=== PATIENT | male | born 1965 | race Caucasian/White ===

== ENCOUNTER 2019-12-05 04:32 | Inpatient (IN) | payer BC ==
[~2019-12-05] VITALS: Ht 188 cm; Wt 103.9 kg
[2019-12-05 04:35] VITALS: BP 160/81
[2019-12-05 04:55] LABS: ABSOLUTE NEUTROPHILS 6.8 thou/uL (1.4-8.2); BASOPHILS 1.6 % (0.0-2.0); EOSINOPHILS 1.3 % (0.0-3.0); HEMATOCRIT 41.3 % (42.0-52.0); LYMPHOCYTES 26.6 % (24.0-44.0); MCH 32.2 pg (26.0-34.0); MCV 94.9 fL (80.0-100.0); PLATELET COUNT 224 thou/uL (150-400); POLYS 64.5 % (36.0-66.0); RBC 4.35 mil/uL (4.50-6.00); RDW 13.4 % (10.5-14.5); WBC 10.6 thou/uL (4.0-11.0)
[2019-12-05 05:01] LABS: CALCIUM 8.5 mg/dL (8.5-10.1); POTASSIUM 4.3 mmol/L (3.5-5.1)
--- NOTE | 2019-12-05 05:09 | NUR ---
CATH TEAM ARRIVED TO BEDSIDE IN ER
[2019-12-05 05:10] VITALS: BP 159/90
[2019-12-05 05:11] LABS: ALBUMIN 3.8 g/dL (3.4-5.0); MAGNESIUM 2.1 mg/dL (1.8-2.4); TOTAL BILIRUBIN 0.3 mg/dL (0.2-1.0); TOTAL PROTEIN 7.8 g/dL (6.4-8.2)
[2019-12-05 05:13] LABS: TROPONIN-I 0.78 ng/mL (<0.06)
--- NOTE | 2019-12-05 05:31 | NUR ---
PATIENT DOWN TO CUSTOM GRINDER AT 0510. REPORT GIVEN AT BEDSIDE TO CUSTOM GRINDER RN AND TECH.
[2019-12-05 07:00] VITALS: BP 137/93
[2019-12-05 16:05] VITALS: BP 117/76
--- NOTE | 2019-12-05 18:25 | NUR ---
ASSUMED CARE OF PT AT SHIFT CHANGE. ASSESSMENTS CHARTED. MEDS GIVEN PER MAY. PT A&OX4, NO C/O PAIN. R GROIN SHEATH PULLED BY ICU NURSE, SITE CONTINUE TO BE CDI, WITH BRUISING OR HEMATOMA. WILL CONTINUE TO MONIOR AND FOLLOW POC.
[2019-12-05 19:25] VITALS: BP 124/76
[2019-12-05 23:06] VITALS: BP 126/74
[2019-12-06 04:10] VITALS: BP 124/78
[2019-12-06 04:13] LABS: HEMATOCRIT 39.1 % (42.0-52.0); HEMOGLOBIN 13.2 gm/dL (14.0-18.0); MCH 32.1 pg (26.0-34.0); MCHC 33.9 g/dL (28.0-37.0); MCV 94.7 fL (80.0-100.0); RBC 4.13 mil/uL (4.50-6.00); RDW 13.5 % (10.5-14.5); WBC 7.9 thou/uL (4.0-11.0)
[2019-12-06 04:22] LABS: CALCIUM 8.3 mg/dL (8.5-10.1); CREATININE 0.9 mg/dL (0.7-1.3); POTASSIUM 4.1 mmol/L (3.5-5.1)
[2019-12-06 04:32] LABS: TOTAL BILIRUBIN 0.4 mg/dL (0.2-1.0); TOTAL PROTEIN 6.7 g/dL (6.4-8.2)
[2019-12-06 04:41] LABS: TROPONIN-I 14.37 ng/mL (<0.06)
--- NOTE | 2019-12-06 06:04 | NUR ---
ASSUMED CARE OF PATIENT AT 1900; POST CATH SITE TO RT GROIN WITH NO EVIDENCE OF BLEEDING; VS TREND 120s/70s WITH HR 50-60s; NSR ON THE MONITOR; NO C/O OF CHEST PAIN; UP AD NINA THROUGHOUT NOC; PATIENT IS ANXIOUS AT ANTICIPATION OF DISCHARGE.
[2019-12-06 07:45] VITALS: BP 123/77
--- NOTE | 2019-12-06 08:10 | EKG ---
[facility] [place] [address] ELECTROCARDIOGRAM REPORT Name: LUZHARJEETLIBBY Castellanos Room #: 201-P ADM IN M.R.#: [id number] Admission: 12/05/19 Attend Phys: Richard Botello MD Discharge: Date of : 67 Report #: [id number] THIS REPORT FOR: cc: NO FAMILY PHYSICIAN or PCP NO FAMILY PHYSICIAN or PCP Tamir Garcia MD ~ THIS REPORT FOR: //name// [facility] ED Test Date: 2019-12-05 Test Time: 04:36:49 Pat Name: LIBBY TRINIDAD Department: Room: 201 Gender: M Ground Transportation Operator: TK : 1965 Requested By: Richard Botello Order Number: [id number] MD: Tamir Garcia Measurements Intervals Bishop Rate: 76 P: 45 AR: 146 QRS: 52 QRSD: 94 T: 55 QT: 388 QTc: 437 Interpretive Statements Sinus rhythm Inferior infarct, acute (RCA) Lateral leads are also involved Probable RV involvement, suggest recording right precordial leads No previous ECG available for comparison Electronically Signed On 12-06-2019 8:09:48 CDT by Tamir Garcia [email or web address] <ELECTRONICALLY SIGNED> By: Tamir Garcia MD 12/06/19 0809 0436 0436 Tamir Garcia MD /EPI
--- NOTE | 2019-12-06 08:14 | EKG ---
[facility] [place] [address] ELECTROCARDIOGRAM REPORT Name: PATRICIOEIVELIBBY Castellanos Room #: 201-P ADM IN M.R.#: [id number] Admission: 12/05/19 Attend Phys: Richard Botello MD Discharge: Date of : 67 Report #: [id number] THIS REPORT FOR: cc: NO FAMILY PHYSICIAN or PCP NO FAMILY PHYSICIAN or PCP Tamir Garcia MD ~ THIS REPORT FOR: //name// [facility] Test Date: 2019-12-06 Test Time: 07:17:14 Pat Name: LIBBY TRINIDAD Department: Room: 201 P Gender: M Data Architect Manager: MALVIN : 1965 Requested By: Richard Botello Order Number: [id number] MD: Tamir Garcia Measurements Intervals Excel Rate: 59 P: 54 NH: 161 QRS: 59 QRSD: 95 T: -1 QT: 402 QTc: 399 Interpretive Statements Sinus rhythm Compared to ECG 12/05/2019 04:36:49 Myocardial infarct finding no longer present Electronically Signed On 12-06-2019 8:14:02 CDT by Tamir Garcia [email or web address] <ELECTRONICALLY SIGNED> By: Tamir Garcia MD 12/06/19813 6 6 Tamir Garcia MD /EPI
--- NOTE | 2019-12-06 08:56 | HC ---
[facility] [place] [address] CONSULTATION Name: LIBBY TRINIDAD Room #: 201-P ADM IN M.R.#: [id number] Admission: 12/05/19 Attend Phys: Richard Botello MD Discharge: Date of : 67 Report #: [id number] THIS REPORT FOR: cc: NO FAMILY PHYSICIAN or PCP NO FAMILY PHYSICIAN or PCP Richard Botello MD ~ CC: Richard Botello NO PCP DATE OF SERVICE: 12/05/2019 CARDIOLOGY CONSULTATION INDICATION: Chest pain. HISTORY OF PRESENT ILLNESS: This is a 54-year-old gentleman with no known past medical history, presenting with chest pain of 24 hours duration. He describes a discomfort across the chest radiating down the left arm. It has been present for approximately 24 hours. The intensity did decrease for a while. Around 5:00 p.m. last night, the pain became more intense. At times, he does recall having episodes of diaphoresis. He denies any shortness of breath, fever, chills, nausea or diarrhea. He reports that the pain is somewhat increased when he is in the supine position and better when sitting up. There is no change with coughing or deep inspiration. ECG reveals sinus rhythm with ST segment elevation in the inferolateral leads with ST depression in V2. PAST MEDICAL HISTORY: Has not followed up with a physician. Blood pressure is elevated in the ER. ALLERGIES: None. MEDICATIONS: None. SOCIAL HISTORY: Tobacco use, 1 pack per day. FAMILY HISTORY: Negative for premature CAD. REVIEW OF SYSTEMS: A full 10-point review of systems performed. Only the pertinent positives and negatives are described in the HPI. PHYSICAL EXAMINATION: VITAL SIGNS: Blood pressure 160/80, heart rate 70 beats per minute. GENERAL APPEARANCE: This is a well-developed, well-nourished male in no acute distress. HEENT: Normocephalic, atraumatic. Oral mucosa moist. NECK: Supple. [facility] [address] [place] [address] CONSULTATION Name: LIBBY TRINIDAD Room #: 201-P [facility] IN [facility].#: [id number] Admission: 12/05/19 Attend Phys: Richard Botello MD Discharge: Date of : 67 Report #: [id number] LUNGS: Clear to auscultation. CARDIAC: Regular rate and rhythm, S1, S2 positive, no rub. ABDOMEN: Soft, nontender. EXTREMITIES: No edema, no cyanosis. LABORATORY VALUES: White count is 10.6, hemoglobin is 14.0, creatinine is 1.0, troponin 0.78 ECG reveals sinus rhythm, ST elevation in the inferolateral leads, ST depression in V2. ASSESSMENT AND PLAN: 1. Unstable angina, rule out inferior wall myocardial infarction. I discussed with the patient the risks, benefits and alternatives of cardiac catheterization. He voices understanding and wishes to proceed. Another consideration is a pericarditis, has elements of both. We will need to proceed with cardiac catheterization to rule out an myocardial infarction. 2. Hypertension, started on medication. 3. Tobacco use, complete smoking cessation is advised. 4. Hypercholesterolemia, will need to be evaluated and treated accordingly. <ELECTRONICALLY SIGNED> By: Richard Botello MD 12/06/19 0856 0525 0707 Richard Botello MD /nt
--- NOTE | 2019-12-06 09:06 | CATHLAB ---
[facility] [place] [address] INVASIVE PROCEDURE REPORT Name: LIBBY TRINIDAD Room #: 201-P ADM IN M.R.#: [id number] Admission: 12/05/19 Attend Phys: Richard Botello MD Discharge: Date of : 67 Report #: [id number] THIS REPORT FOR: cc: NO FAMILY PHYSICIAN or PCP NO FAMILY PHYSICIAN or PCP Richard Botello MD ~ APPROVED REPORT Study performed: 12/05/2019 05:19:47 Patient Details Patient Status: ED Room #: The patient is a 54 year-old male Event Personnel Richard Botello Derrick Boat Captain, Dana Nicholas RN RN, Alicia Muñiz RT(R)() Lexi Hatch Ja'net RTR Monitor Procedures Performed Left Heart Cath w/or w/o Coronaries [id number] [facility] w/wo Plasty Addl BR OM 1 C9601 DESADDL Art Access - R femoral artery* 43115 Initial Mod Sed Same Phys/QHP Gr5y 469777 26705 Mod Sed Same Phys/QHP Ea 947652 Indication STEMI (>6 hrs to = 12 hrs), Dyspnea, Chest pain Risk Factors Hypercholesterolemia, Hypertension, Tobacco History () Procedure Narrative The patient was brought emergently to the Cardiac Catheterization Laboratory and was prepped and draped in a sterile manner. The Right Groin^ was infiltrated with 1% Lidocaine subcutaneous anesthesia. A PINNACLE 6FR Sheath #[id number] sheath was inserted into the RFA^. Coronary angiography was performed using coronary diagnostic catheters. The right coronary system was accessed and visualized with a JR4 catheter. The left coronary system was accessed and visualized with a JL4 catheter. The left ventricle was accessed and visualized with a PIGTAIL catheter. Left ventriculogram was performed in 30 degree projection. The patient tolerated the procedure well and there were no complications associated with the procedure. There was no hematoma. [address] [address] [place] [address] INVASIVE PROCEDURE REPORT Name: LIBBY TRINIDAD Room #: 201-P [facility] IN ..#: [id number] Admission: 12/05/19 Attend Phys: Richard Botello MD Discharge: Date of : 67 Report #: [id number] Intraoperative Conscious Sedation Sedation start time: 5:31 Case end Time: 6:21 Fentanyl 50 mcg Versed 1 mg Fluoro Time: 10.51 minutes Dose: DAP 01522.30 cGycm2 1505 mGy Contrast Type and Amount: Omnipaque 275 ml Coronary Angiography The patient's coronary anatomy is co- dominant. Diagnostic Cath Left Main The left main artery is a large-caliber vessel, appears angiographically normal. LAD The LAD is a moderate-sized caliber vessel, traversing the anterior wall and wrapping around the apex. There is mild disease in the proximal segment, 20%. Diagonal 1 There are a few small diagonal arteries, patent with no flow-limiting lesions. Circumflex The left circumflex artery is a codominant vessel. Supplies 1 moderate-sized OM vessel. OM1 OM1 divides into 2 branches. The inferior branch is larger of the 2 vessels. There is a total occlusion in the proximal segment of the inferior branch. The inferior branch extends all the way down to the inferoapical segment. Right Coronary There is mild disease in the proximal segment, 20%. R PDA The PDA is a patent vessel, with no flow-limiting lesions. Left Ventriculography The left ventricle is normal in size with mildly diminished contractility. The left ventricular ejection fraction is estimated to be 50%. There is mild hypokinesis of the distal inferoapical segment. Hemodynamics The aortic pressure is 209/41 mmHg with a mean of 39 mmHg. The left ventricular pressure is 137/3 mmHg with a mean of mmHg. The left ventricular end diastolic pressure is 21 mmHg. Pullback from the left ventricle to the aorta revealed no gradient across the aortic valve. PCI Technique Lesion Anticoagulation was achieved with Angiomax. Patient was preloaded with Angiomax IV 16 ml. Percutaneous coronary intervention was [facility] [address] [place] [address] INVASIVE PROCEDURE REPORT Name: LIBBY TRINIDAD Room #: 201-P ADM IN M.R.#: [id number] Admission: 12/05/19 Attend Phys: Richard Botello MD Discharge: Date of : 67 Report #: [id number] performed on the first obtuse marginal branch segment. The lesion stenosis prior to intervention was 100% with HENRY 1 flow. A VISTA 6FR XB 3.5 #[id number] Guide Catheter was used to engage the OM1 ostium. A Luge Wire .014 x 182CM #[id number] Interventional Guidewire was used to cross the lesion. BALLOON DILATION A Balloon catheter Euphora RX 2.25 x 12 #[id number] was inserted and inflated up to 10.00atm for 13seconds. STENT DEPLOYMENT A stent RESOLUTE ESTEFANÍA RX 2.5 X 15 #[id number] was inserted and inflated up to 10.00atm for 18seconds. POST STENT DEPLOYMENT BALLOON DILATION A Balloon catheter TREK NC RX 2.5 X 12 #[id number] was inserted and inflated up to 8.00atm for 11seconds. Additional Inflation: 14.00atm for 10seconds. Additional Inflation: 14.00atm for 9seconds. Final angiography reveals 0 % stenosis with HENRY 3 flow. Conclusion 1. Successful insertion of a drug-eluting stent into the first obtuse marginal artery. 2. There is mild disease in the LAD and RCA. 3. There is low normal LV systolic function, with hypokinesis of the distal inferoapical segment. 4. Recommend dual antiplatelet therapy and aggressive risk factor management. <ELECTRONICALLY SIGNED> By: Richard Botello MD 12/06/19905 5 5 Richard Botello MD /INF
[2019-12-06 11:10] VITALS: BP 124/67
--- NOTE | 2019-12-06 14:30 | NUR ---
PT RESTING IN BED, REVIEWED POC, PT VERBALIZED UNDERSTANDING, TO SIDE, R GROIN BANDAID REDRESSED, NO HEMATOMA NOTED, PT TO STAY ONE MORE NIGHT DUE TO STEMI, CARDIAC REHAB IN TO SEE PT, WILL MONITOR
[2019-12-06 15:20] VITALS: BP 120/68
[2019-12-06 20:45] VITALS: BP 121/74
[2019-12-07 00:16] VITALS: BP 122/74
--- NOTE | 2019-12-07 03:54 | NUR ---
1900. PT ALERT AND ORIENTED. VITALS STABLE. S/P CARDIAC CATH AND STENT ON 12/04. DENIES CHEST PAIN, NAUSEA OR VOMING. RIGHT GROIN C/D/I. NO FURTHER CONCERNS. PT ANTICIPATE TO DC THIS AM. WILL CONTINUE TO MINITOR AND FOLLOW POC.
[2019-12-07 05:32] VITALS: BP 117/72
[2019-12-07 07:10] VITALS: BP 118/74
[2019-12-07 08:43] VITALS: BP 118/74
[2019-12-07] MEDS ORDERED: LIPITOR40 MG PO (09:07)
[2019-12-07] MEDS ORDERED: ASPIRIN325 PO (09:07)
[2019-12-07] MEDS ORDERED: EFFIENT10 MG PO (09:07)
--- NOTE | 2019-12-07 10:26 | NUR ---
RECEIVED PT'S CARE AROUND 0710; PT. ON BED; RESTING WITH EYES CLOSED; EQUAL CHEST RISING NOTICED; SR ON THE MONITOR; DURING AM ASSESSMENT PT. AOX4; NO C/O PAIN; R. GROIN SIDE NO SHOWED HEMATOMA; DRESSING REMOVED; EDUCATED ABOUT FALL PRECAUTIONS; ST. UNDERSTANDING; EDUCATED ABOUT D/C PROCESS; ST. UNDERSTANDING; D/C ORDERS ON PLACED AROUND 1020; PT. NOTIFIED; ST. UNDERSTANDING; ASSESSMENT CHARGED; FOLLOWED POC; WORKING ON D/C ORDERS;
[2019-12-07 10:32] VITALS: BP 118/74
== END 2019-12-07 10:58 | disposition home or self-care (01) | DRG 247 ==
LOC: ER 04:32 → 2N 06:20 → TBACV 06:20 → 2N 07:37
PROVIDERS: Emergency Medicine; ADMIT Internal Medicine Cardiovascular Disease; ATTEND Internal Medicine Cardiovascular Disease
PROC: 027034Z Dilation of Coronary Artery, One Artery with Drug-eluting Intraluminal Device, Percutaneous Approach (ICD-10-PCS; principal; 2019-12-05)
PROC: B2111ZZ Fluoroscopy of Multiple Coronary Arteries using Low Osmolar Contrast (ICD-10-PCS; principal; 2019-12-05)
PROC: 4A023N7 Measurement of Cardiac Sampling and Pressure, Left Heart, Percutaneous Approach (ICD-10-PCS; principal; 2019-12-05)
PROC: B2151ZZ Fluoroscopy of Left Heart using Low Osmolar Contrast (ICD-10-PCS; principal; 2019-12-05)
DX: I21.3 ST elevation (STEMI) myocardial infarction of unspecified site (principal); I47.1 Supraventricular tachycardia; E78.00 Pure hypercholesterolemia, unspecified; I10 Essential (primary) hypertension; R00.1 Bradycardia, unspecified; I25.110 Atherosclerotic heart disease of native coronary artery with unstable angina pectoris; Z91.19 Patient's noncompliance with other medical treatment and regimen; Z71.6 Tobacco abuse counseling; Z79.82 Long term (current) use of aspirin; Z79.899 Other long term (current) drug therapy
CPT/HCPCS: 10081